=== PATIENT | male | born 1995 | race Asian ===

== ENCOUNTER 2020-09-23 15:41 | Outpatient (REF) | payer MEDICAID, SELFPAY ==
--- NOTE | ~2020-09-23 | XR_ITS ---
EXAMINATION: XR HAND, LEFT CLINICAL INFORMATION: Localized swelling, mass or lump COMPARISON: None TECHNIQUE: PA, lateral, and oblique views of the left hand. FINDINGS: The bones and soft tissues are normal. No fracture. Alignment is anatomic. Joint spaces are maintained. No erosions or soft tissue calcifications. XR/XR hand LT min 3V IMPRESSION: Normal left hand.
== END 2020-09-23 15:42 | disposition home or self-care (01) ==
LOC: HO.XRAY 15:41
PROVIDERS: PCP General Practice; Visit Provider General Practice
DX: R22.32 Localized swelling, mass and lump, left upper limb (principal)
CPT/HCPCS: 73130

== ENCOUNTER 2020-10-10 08:28 | Outpatient (REF) | payer MEDICAID, SELFPAY ==
--- NOTE | ~2020-10-10 | US_ITS ---
EXAMINATION: US EXTREMITY NONVASCULAR CLINICAL INFORMATION: Left hand nodule. COMPARISON: Left hand radiographs dated 10/10/2020. TECHNIQUE: Grayscale, Doppler, and cine images were obtained in the region of the patient's palpable findings. FINDINGS: No abnormal soft tissue mass or fluid collection. No findings to correspond to the patient's palpable complaint. No inflammatory change. US/US extremity nonvascular IMPRESSION: Unremarkable examination.
== END 2020-10-10 08:29 | disposition home or self-care (01) ==
LOC: HO.HMGCX 08:28
PROVIDERS: PCP General Practice; Visit Provider General Practice
DX: R22.32 Localized swelling, mass and lump, left upper limb (principal)
CPT/HCPCS: 76882